=== PATIENT | male | born 1955 | race Caucasian/White ===

== ENCOUNTER → 2020-06-30 17:50 | Outpatient (CLI) | payer OTHER, SELFPAY ==
--- NOTE | 2020-06-30 17:52 | DI.MRI.S_ITS ---
PROCEDURE: MR KNEE LT WO CON INDICATIONS: PRIMARY OSTEOARTHRITIS LEFT KNEE TECHNIQUE: Noncontrast sagittal PD fast spin echo and T2 fast spin echo with fat saturation, sagittal 3-D FLASH with fat saturation; coronal T1 spin echo and PD fast spin echo with fat saturation, and axial PD fast spin echo with fat saturation through the knee. COMPARISON: [facility], MR, KNEE WITHOUT CONTRAST, 11/01/2014, 20:09. FINDINGS: Image quality: Excellent. Menisci: Linear oblique high T2 signal intensity traverses the posterior horn medial meniscus, demonstrating inferior articular surface extension, indicating oblique tearing, as before. Medial extrusion of the medial meniscus is present. Lateral meniscus is intact. Cruciate ligaments: The anterior and posterior cruciate ligaments appear intact. Medial structures: The medial collateral ligament appears intact. Visualized portions of the pes anserinus tendons appear normal. No abnormal bursal fluid. Lateral structures: The lateral collateral ligament, long and short heads of the biceps femoris tendon appear intact. The popliteus tendon appears normal. Iliotibial band appears normal. Anterior structures: The quadriceps and patellar tendons appear intact. Patellar alignment is normal. No femoral trochlear dysplasia or ventral trochlear prominence. No edema in the infrapatellar fat pad. Bones and cartilage: No bone marrow contusions or fractures. There is mild ill-defined T2 signal elevation within the weight-bearing aspect of the medial femoral condyle, as well as the central tibial plateau. Intraosseous ganglion within the central tibial plateau posteriorly. Severe articular cartilage loss diffusely overlies the weight-bearing aspects of the medial femoral condyle and medial tibial plateau. Joint space: There is a moderate knee joint effusion. No Segovia's cyst. Normal appearing synovial plicae are incidentally noted. IMPRESSION: 1. Tricompartmental osteoarthritis with associated articular cartilage loss. 2. Complex tear of medial meniscus. 3. Knee joint effusion and Segovia's cyst. Dictated by: Francisco Huggins M.D. on 07/01/2020 at 11:12 Approved by: Francisco Huggins M.D. on 07/01/2020 at 11:14
== END ==
PROVIDERS: Referring Provider Nurse Practitioner Family; Visit Provider Nurse Practitioner Family
DX: M17.12 Unilateral primary osteoarthritis, left knee (principal); S83.207A Unspecified tear of unspecified meniscus, current injury, left knee, initial encounter; M25.462 Effusion, left knee; M71.22 Synovial cyst of popliteal space [Baker], left knee
CPT/HCPCS: 73721

== ENCOUNTER → 2020-07-22 12:16 | Outpatient (CLI) | payer OTHER, SELFPAY ==
[2020-07-22 12:36] LABS: Add Manual Diff / Slide Review NO; Basophils Absolute Auto 0 /uL (0-100); Basophils Percent Auto 0.5 % (0-2); Eosinophils Absolute Auto 100 /uL (0-450); Hematocrit 43.6 % (41-53); Lymphocytes Absolute Auto 2600 /uL (1100-4500); Lymphocytes Percent Auto 38.1 % (25-40); Mean Corpuscular HGB Conc 34.3 % (30-36); Mean Corpuscular Hemoglobin 29.8 PG (26-34); Mean Corpuscular Volume 86.9 fL (80-100); Monocytes Absolute Auto 600 /uL (0-900); Monocytes Percent Auto 9.1 % (3-14); Neutrophils Absolute Auto 3500 /uL (1500-7000); Neutrophils Percent Auto 50.3 % (50-75); Platelet Count 302 X10^3/uL (150-400); Red Blood Cell Count 5.02 X10^6/uL (4.5-5.9); Red Cell Distribution Width 13.5 % (11.6-14.8); White Blood Cell Count 6.9 X10^3/uL (4.5-11.0)
[2020-07-22 12:43] LABS: Hemoglobin A1C% w Est Avg Glu 6.1 % (4.0-6.0)
[2020-07-22 12:50] LABS: BUN Creatinine Ratio 15.5 (6-22); Blood Urea Nitrogen 17 mg/dL (9-20); Calcium 9.8 mg/dL (8.4-10.2); Carbon Dioxide 27 mmol/L (22-32); Chloride 101 mmol/L (98-107); Estimated Glomerular Filt Rate > 60.0 mL/min (>60); Glucose 109 mg/dL (80-110); HEMOLYSIS < 15 (0-50); Potassium 4.3 mmol/L (3.4-5.1); Sodium 137 mmol/L (137-145)
== END ==
PROVIDERS: Referring Provider Orthopaedic Surgery; Visit Provider Orthopaedic Surgery
DX: Z01.818 Encounter for other preprocedural examination (principal); Z01.812 Encounter for preprocedural laboratory examination; R73.9 Hyperglycemia, unspecified
CPT/HCPCS: 36415; 80048; 83036; 85025; 93005; 93010

== ENCOUNTER → 2020-08-20 09:10 | Outpatient (CLI) | payer OTHER, SELFPAY ==
[2020-08-20 10:06] LABS: COVID19 -Nasal RAPID Negative (Negative)
== END ==
PROVIDERS: Visit Provider Physician Assistant
DX: Z01.812 Encounter for preprocedural laboratory examination (principal); Z20.822 Contact with and (suspected) exposure to COVID-19
CPT/HCPCS: 87635

== ENCOUNTER 2020-08-22 11:07 | Day surgery (SDC) | payer OTHER, SELFPAY ==
[2020-08-15 12:45] VITALS: BMI 36.0
[2020-08-22] VITALS (12 sets, daily range): BP systolic 103–144; BP diastolic 60–93; PULSE 68–88; RESP 12–18; TEMP 36.1–36.9; O2SAT 94–100; BMI 36.0
--- NOTE | 2020-08-22 11:21 | DI.RAD.S_ITS ---
PROCEDURE: XR KNEE LT 1TO2V INDICATIONS: post op total knee TECHNIQUE: 2 view(s) of the knee acquired. COMPARISON: None. FINDINGS: Bones: Patient is status post knee joint arthroplasty. Hardware components are in expected positions. Visualized bony structures are intact. Soft tissues: Overlying postoperative changes are noted. IMPRESSION: Expected postoperative appearance Dictated by: Boni Rojo M.D. on 08/22/2020 at 16:32 Approved by: Boni Rojo M.D. on 08/22/2020 at 16:33
[2020-08-22] MEDS: PREGABALIN 75 MG CAPSULE PO (12:15)
[2020-08-22] MEDS: CELECOXIB 200 MG CAPSULE PO (12:16)
[2020-08-22] MEDS: ACETAMINOPHEN 325 MG TABLET 975 MG PO (12:16)
--- NOTE | 2020-08-22 12:32 | PM.PREOP ---
Pre-operative Note COVID-19 COVID-19 status: Negative Result date/Date tested (Pos, Neg/Pending): 08/20/20 Interval Note History & Physical reviewed/Exam performed by Physician: Yes Changes to H&P: No
[2020-08-22] MEDS: CEFAZOLIN 1 GM VIAL 2 GM IV (13:54)
[2020-08-22] MEDS: TRANEXAMIC ACID 1,000 MG VIAL 1000 MG INJ ×2 (14:10→15:06)
--- NOTE | 2020-08-22 14:18 | SUR.OPER ---
Supine on padded OR bed. Pillow under head, arms secured on padded armboards <90 degree abduction. Safety belt across torso. Non-operative leg secured with tape over blanket over lower leg. Operative leg secured in DeMayo/Josr positioner. Foam padded brace at thigh of operative leg.
[2020-08-22] MEDS: BUPIVACAINE LIPOSOME 266 MG/20 ML VIAL INJ (14:24)
[2020-08-22] MEDS: MORPHINE 4 MG/ML INJ INJ (14:26)
[2020-08-22] MEDS: EPINEPHrine 1 MG/ML SUBCUT (14:27)
[2020-08-22] MEDS: BUPIVACAINE 0.25% (PF) VIAL 30 ML INJ (14:28)
--- NOTE | 2020-08-22 15:29 | P.OP_ITS ---
Operative Date/Time/Diagnoses Date of procedure: 08/22/20 Time of procedure: 15:29 Pre-op diagnosis: Left knee osteoarthritis Post-op diagnosis: same Procedure & Clinicians Procedure: Left total knee replacement Same procedure as scheduled: Yes Indications: The patient has had progressively worsening left knee pain with radiographic changes consistent with arthritis. Non-operative management has failed and the patient has requested total knee replacement. The risks, benefits and alternatives to surgery were discussed with the patient prior to proceeding. Risks discussed included, but were not limited to, failure to relieve pain, stiffness, infection, nerve damage, deep venous thrombosis, pulmonary embolism, stroke, coma, heart attack, permanent paralysis and , as well as the potential need for eventual revision of the prosthetic. Surgeon: Shorty Bertrand Medical Practice Manager: Reza Stephens Click Yes if Unassisted: No Anesthesia Type: General, Spinal and Local Operative Notes Findings: Significant patellofemoral and medial osteoarthritis with relative preservation of the lateral compartment. Closure Type: primary Specimen(s): none sent Prosthetic devices, grafts, tissues, transplants, or devices: Implants used in this procedure were manufactured by the [employer] and [employer] and included the BCS II Journey total knee replacement with a size 5 left non porous tibial base plate, a size 6 left Oxinium femoral component, a 9 mm cross-linked polyethylene tibial insert, and a 35 mm oval Deena II patellar component. Applied: implant(s) Estimated Blood Loss (mL): 50 Tourniquet time (min): 57 Procedure in detail: The patient was seen in the pre-operative area, where the left knee was identified as the operative site and this was marked with my initials. The patient received pre-operative antibiotics, and was taken to the operating room and placed on the operative table in the supine position. After satisfactory anesthesia, a night time babysitter out was performed. The left leg was encircled with a tourniquet about the proximal thigh, and the leg was prepared from the toes to the tourniquet with ChloroPrep in the usual fashion and draped through sterile drapes. The leg was elevated and exsanguinated with Eschmark bandage and the tourniquet inflated to 250 mmHg pressure. The knee was approached through an approximately 18 cm incision centered over the patella and carried into the knee through a medial parapatellar arthrotomy. The anterior osteophytes and soft tissues were removed. The rotational landmarks of Bergen's line and the transepicondylar axis were marked on the femur with electrocautery, and intramedullary guide holes for the femur and tibia were created. The distal femoral cut was made in 6 degrees of valgus using the intramedullary guide at the +1 cut setting due to a mild flexion contracture. The proximal tibial cut was then made using the intramedullary guide, taking 9 mm of bone off the less involved side. The extension gap was checked and the rotation of the femoral component confirmed with the gap balancing blocks. The anterior, posterior and chamfer cuts were then made. The posterior osteophytes and soft tissues were then removed. The posterior capsule was injected with part of a mixture of 60 ml 0.25% Marcaine mixed with 20 ml Exparel and 4 mg of morphine for post-operative pain control. The remainder of this mixture was injected into the capsule and subcutaneous tissues during cement curing. The tibia was prepared with the rotation set by an extra medullary guide. Trial tibial and femoral components were then placed and the intercondylar notch cut through the femoral trial. Range of motion was 0-135 degrees, with good stability throughout the range. The patella was then cut to accommodate the patellar prosthetic. There was no need for a lateral release. The trials were then removed, and the femoral hole plugged with a bone plug. The bone was prepared with pulsatile lavage, and dried with a sponge. Cement was applied and the final prosthetics placed. Excess cement was removed during and after cement curing. After confirming there was no extruded cement posteriorly, the final tibial insert was placed. The knee was copiously irrigated and the tourniquet deflated. Hemostasis was obtained. The capsule was closed with interrupted # 2 polyester sutures. The subcutaneous layer was closed with 3-0 Vicryl, and the skin with a running 3-0 V-Lock suture and Dermabond. An Aquacel Ag dressing was applied and the patient was taken to recovery having tolerated the procedure well. Complications: none Post-operative Condition: stable Disposition: PACU Plan for aftercare: The patient will be maintained on a standard total knee replacement protocol with weight bearing as tolerated. The patient will receive aspirin and sequential compression devices for DVT prophylaxis. The patient will be discharged home when safe for the home environment.
[2020-08-22] MEDS: LACTATED RINGERS 1,000 ML 100 ML IV (17:27)
[2020-08-22] MEDS: IBUPROFEN 400 MG TABLET PO ×2 (17:27→22:07)
[2020-08-22] MEDS: ONDANSETRON 4 MG/2 ML INJ IV (20:44)
[2020-08-22] MEDS: OXYCODONE/ACETAMINOPHEN 5/325 TABLET 1 TAB PO (22:07)
[2020-08-22] MEDS: DOCUSATE 100 MG CAPSULE PO (22:07)
[2020-08-22] MEDS: ASPIRIN EC 81 MG TABLET PO (22:08)
[2020-08-22] MEDS: ACETAMINOPHEN 325 MG TABLET 650 MG PO (22:08)
[2020-08-23] MEDS: IBUPROFEN 400 MG TABLET PO ×4 (01:02→12:45)
[2020-08-23 01:20] VITALS: BP 154/94; PULSE 73; RESP 18; TEMP 36.4; O2SAT 98
[2020-08-23] MEDS: HYDROCODONE/ACET 5/325 TABLET 1 TAB PO (02:13)
[2020-08-23] MEDS: LACTATED RINGERS 1,000 ML 100 ML IV (02:48)
[2020-08-23 05:00] VITALS: BP 154/95; PULSE 75; RESP 22; TEMP 36.1; O2SAT 98
[2020-08-23 06:04] LABS: Hematocrit 39.7 % (41-53); Hemoglobin 13.4 g/dL (13.5-17.5)
[2020-08-23] MEDS: OXYCODONE/ACETAMINOPHEN 5/325 TABLET 1 TAB PO (06:36)
[2020-08-23 07:28] VITALS: BP 124/80; PULSE 71; RESP 18; TEMP 36.1; O2SAT 98
--- NOTE | 2020-08-23 07:38 | P.PN_ITS ---
Subjective Subjective Date Patient Seen: 08/23/20 Time Patient Seen: 07:38 Interval history: Patient states he is doing well overall and is in mild discomfort at rest. At this time the patient denies fever, chills, nausea, chest pain, shortness of breath, or urinary retention. Patient reports good sensation throughout the bilateral lower extremities. He notes that he is eager to be discharged home today. He explains he has been able to ambulate in his room to use the commode. Exam Vital Signs (past 8 hours): - 08/23/20 01:20 08/23/20 05:00 Temperature 97.6 F 96.9 F L Pulse Rate 73 75 Respiratory Rate 18 22 Blood Pressure 154/94 H 154/95 H Pulse Oximetry 98 98 Oxygen Delivery Method Room Air Oxygen Flow Rate 0 Narrative Exam Narrative: 64-year-old male postop day 1 status post left total knee arthroplasty. Patient is resting comfortably in bed, is in no acute distress, is alert and oriented x3. Skin is warm and dry, and the skin surrounding the incision site is free of erythema, warmth, induration, or discharge. Aquacel dressing over the incision site is clean, dry, and intact. Good sensation appreciated throughout bilateral lower extremities to light touch. Hip flexion performed bilaterally without difficulty or discomfort, right greater than left. Ankle dorsiflexion, plantar flexion, eversion, inversion performed bilaterally without difficulty or discomfort. Calves are soft and nontender, negative Homans sign. DP pulses palpated bilaterally. Capillary refill less than 2 seconds. No other signs of DVT appreciated. Const General: cooperative, healthy appearing and comfortable Resp Effort & Inspection: normal respiratory effort and able to speak in complete sentences Skin General: no rashes or lesions noted Objective Labs Result Diagrams: 08/23/20 05:25 Labs: Laboratory Results - last 24 hr 08/23/20 05:25 Hgb 13.4 L Hct 39.7 L [facility] Medical History Seasonal allergies Tinnitus Surgical History History of arthroscopy of both knees History of arthroscopy of right shoulder (08/06/16) History of surgery History of vasectomy (~1983) Hx of plastic surgery Hx of repair of left rotator cuff (01/30/16) Social History household members: spouse and children Smoking Status: Former smoker alcohol intake: former Assessment & Plan Post-op Postoperative Procedures: Procedures Operation Date: 08/22/20 13:15 Actual Procedures Side Surgeon p Total Knee Arthroplasty Left Shorty Bertrand MD Postoperative day: 1 Postoperative status: doing well Postoperative plan: ambulate Postoperative plan narrative: Patient is to remain weight-bearing as tolerated with the assistance of a front wheeled walker. Patient to remain in standard total knee replacement protocol. Patient is to continue working on ambulation and stair Coal with physical therapy prior to discharge. Current pain management regimen is to be continued as it is adequately controlled the patient's pain level at this time. Aspirin 81 mg twice daily is to be continued for DVT prophylaxis along with the assistance of sequential compression devices. Plan for discharge likely home today pending successful work with PT. Quality VTE Deep Vein Thrombosis/Pulmonary Embolism Present on Admission: No
--- NOTE | 2020-08-23 08:21 | CM.DANOTE ---
Addendum entered by Yareli Hugo LPN 08/23/20 11:20: PT has cleared pt for home setting with spouse assist and OUTPT PT. No concerns re the d/c today are identified. Original Note: Discharge Planning/Care Management DCP: assessment: Case received, EMR reviewed and d/c order noted. Pt is a 64 year old male who admitted yesterday for a scheduled L TKA. Payer: [facility]. PT will see him for first time today. Ortho PA Reza clarifies that pt will d/c to home setting once cleared by PT. Will check in and follow prn. Has support from Claudia. CM Discharge Assessment Start: 08/23/20 08:20 Freq: Status: Active Protocol: Document 08/23/20 08:21 ITV (Rec: 08/23/20 08:21 ITV [id number]) Discharge Planning Assessment Advance Directives? No History Provided By Medical Record Prior Living Arrangements House Household Members spouse,children Pre-Anesthesia Assessment Start: 08/15/20 12:45 Freq: Status: Active Protocol: Document 08/15/20 12:45 CAB (Rec: 08/15/20 13:35 CAB [id number]) Pre-Anesthesia Assessment Patient Information Reviewed Via Phone Assessment Assessment Completed With Patient Diagnostic Results BMP/CMP,CBC,EKG Comment Labs/EKG @ [facility] 07/22/20 - COVID screen @ [facility] 08/20/20 Primary Care Provider Alexandra Narvaez Seen Specialist in Last 12 Months Yes Specialist Seen Orthopedist Primary Language Faroese Telemetry Rn Required No Height 170.18 cm Weight 104.326 kg Body Mass Index (BMI) 36.0 Hearing Ability Use of Hearing Aid Visual Assist Magnifying Glass Dentition Type Teeth, Natural Present,Teeth, Missing Barriers to Learning None Hx Anesthesia Reactions No Hx Family Anesthesia Reaction No Hx Malignant Hyperthermia No Hx Blood Transfusions No Anesthesia Review Requested No alcohol intake former Smoking Status Former smoker Tobacco type cigarettes,pipe,cigars how long ago did patient quit smoking Quit 1991 Substance Use Type does not use Pain Present Pain Reported Musculoskeletal Symptoms Abnormal Gait,Difficulty Walking,Joint Pain History of Falling (Recent or History of No ) Patient is completely paralyzed or No completely immobile Mental Status Oriented to own ability Is patient on oxygen? No Does patient have ZAPATA/SOB No Hx Sleep Apnea No Currently Taking a Beta Yan No Can You Climb a Flight of Stairs Without Yes SOB Hx Chest Pain No Hx SOB No Hx Syncope or Dizziness No Anti-Coagulant Therapy No Has a Research Support Specialist No Cardiac Testing No Hx Pacemaker/ICD No Pacemaker Rep Required? No Cardiac Clearance Received Not Applicable Diet Type At Home Regular dysphagia No Bladder Pattern Nocturia Urinary Catheter Present No Hx Urinary Self Catheterization No Diabetes No HgbA1C 6.1 Date 07/22/20 Hx Drug Resistant Organism No Presence of External or Internal Medical Yes: Right shoulder Devices Have you had any close contact with No someone diagnosed with COVID-19? Marital Status Lives With spouse,children Prior Living Arrangements House Number of Floors (Floors) Two Floors Support System Spouse Does the Patient Have Assistance After Yes Surgery Patient Discharge Plan Description Return Home Comment Pt advised 23 hour length of stay per surgeon Feels Safe in Current Environment Yes Been Physically Hurt or Threatened By a No Person in Current Environment Do you have thoughts of harming yourself None or others? Are you currently considering suicide? No Do you have a plan to hurt yourself or No Plan others? Do You Have Any Spiritual Beliefs That No May Affect Your HC Choices? Do You Have Any Cultural Practices That No May Affect Your HC Choices? Comment Restorationist Who Can We Speak to About Patient's Care Family, friends Identifying Code for Release of Patient Declines to issue Information Health Care Proxy/Next of Kin Claudia () Health Care Proxy Emergency Contact Name Claudia () Moni ( daughter) Emergency Contact Phone Number Claudia: [phone] Moni : [phone] Advance Directives? No Power of Tailing Machine Operator No PAC Instructions Durable medical equipment, Medications to take/avoid, Nasal antibiotic,No ETOH/ petroleum product on skin DOS, NPO,Post-op transportation,Pre -surgical wash,Sensory aids, Sturdy shoes/comfortable clothes,Do not bring valuables and remove jewelry
[2020-08-23 08:27] VITALS: PULSE 62; RESP 16; O2SAT 95
[2020-08-23] MEDS: DOCUSATE 100 MG CAPSULE PO (09:03)
[2020-08-23] MEDS: ACETAMINOPHEN 325 MG TABLET 650 MG PO (09:04)
[2020-08-23] MEDS: ASPIRIN EC 81 MG TABLET PO (09:04)
--- NOTE | 2020-08-23 10:15 | PT.IIE ---
Current Diagnoses Unilateral primary osteoarthritis, left knee (08/22/20) Surgery Performed Operation Date: 08/22/20 13:15 Actual Procedures p Total Knee Arthroplasty(Left) - Shorty Bertrand MD Surgical History (Last Reviewed 08/23/20 @ 07:39 by Reza Stephens PA-C) History of arthroscopy of both knees History of arthroscopy of right shoulder (08/06/16) History of surgery History of vasectomy (~1983) Hx of plastic surgery Hx of repair of left rotator cuff (01/30/16) Medical History (Last Reviewed 08/23/20 @ 07:39 by Reza Stephens PA-C) Seasonal allergies Tinnitus Physical Therapy Inpatient Evaluation/Re-Eval M1 PT/OT-IP Prior Functional Status Start: 08/23/20 11:00 Freq: NEEDED Status: Active Protocol: Document 08/23/20 10:15 DLM (Rec: 08/23/20 11:12 DLM [id number]) Medical Review Prior Functional Status Medical History Reviewed Yes Diet/Fluid Consistency Regular Communication WNL Mobility and Gait Independent without device community distances, knee pain limited activity Activities of Daily Living and IADL's Independent Prior Functional Level (Other details) His goal is to be able to hike [place] in Dec. Social History Household Members spouse,children Living Arrangements House Number of Floors (Floors) Two Floors Number of Stairs To Enter/Railing? 7 to bedroom, one to enter house Home Environment High Toilet,Walk in Shower Home Equipment Front Wheel Walker,Straight Cane,Grab Bars Near Toilet, Grab Bars In Shower M2 PT-IP Current Condition Start: 08/23/20 11:00 Freq: NEEDED Status: Active Protocol: Document 08/23/20 10:15 DLM (Rec: 08/23/20 11:12 DLM [id number]) Physical Therapy Current Condition Current Condition Evaluation Date 08/23/20 Treatment Diagnosis left TKA, impaired gait and mobility Onset Date 08/22/20 Weight Bearing Status Weight Bearing Status Weight Bear as Tolerated M3 PT-IP Subjective Start: 08/23/20 11:00 Freq: NEEDED Status: Active Protocol: Document 08/23/20 10:15 DLM (Rec: 08/23/20 11:12 DLM [id number]) Subjective Physical Therapy Visit Type Type Initial Evaluation Visit Start Time 10:15 Visit Stop Time 09:14 Total Visit Minutes 61 Number of ATHLETIC TURF WORKER Visits 0 Physical Therapy Visit Comments Patient Comments He has out-pt PT planned after discharge, His FWW is ready to use, has experience with equipment from family members using them in the past Patient Goals Discharge home today Therapy Pain Assessment Pain When Pain Assessed After Treatment Pain Present Pain Present Pain Reported Location LEFT KNEE Intensity 4 Scale Used Numeric (0 - 10) Description Aching,Tightness,With Movement Pain Behaviors Facial Grimacing Pain Management Techniques Apply Cold,Elevation,Timing of Activity with Medications M4 PT-IP Mobility and Gait Start: 08/23/20 11:00 Freq: NEEDED Status: Active Protocol: Document 08/23/20 10:15 DLM (Rec: 08/23/20 11:12 DLM [id number]) PT-Bed Mobility Assessment Rolling Type of Rolling Bilateral Level of Assist Independent Supine to Sit Supine to Sit Independent Sit to Supine Sit to Supine Independent Scooting Scooting to Edge of Bed Independent Scooting Up and Down in Bed Independent PT-Transfer Assessment Sit to and From Stand Sit to and from Stand Independent,Use of Upper Extremities Equipment Transfer Assistive Device Gait Belt,Front Wheeled Walker Transfers Transfer Destination Chair Transfer Technique Stand Step Pivot Transfer Ability Level of Assist Independent,Use of Upper Extremities Comments Mobility Comments After training he demonstrates independent mobility with safe technique, good use of UE 's to compensate for left LE, using right LE to assist left LE into bed to better manage his pain Gait Assessment Gait Gait Assistance Required: Independent Distance (Feet) 200 Able to Maintain Weight Bearing Status Yes During Gait Assistive Devices Assistive Device Gait Belt,Front Wheeled Walker Gait Deviations General Gait Pattern Antalgic Factors Limiting Gait Function Factors Limiting Gait Function Decreased Activity Tolerance, Decreased Strength,Limited Range of Motion,Pain Stair Climbing Assessment Evaluation Level of Assist On Stairs Standby Assistance Devices Stair Climbing Assistive Devices Left Railing,Right Railing Technique/Endurance Stair Climbing Direction Ascend and Descend Stair Climbing Technique Step to Step Number of Steps Climbed 3 Query Text: Stair Climbing Set # Repetitions (reps) 1 Comments Stair Climbing Comments also performed up/down curb with FWW with SBA PT-Balance Assessment Sitting Balance and Reactions Static Sitting Balance Ability Normal Dynamic Sitting Balance Ability Normal Standing Balance and Reactions Static Standing Balance Ability Good Dynamic Standing Balance Ability Good Device Used FWW M5 PT-IP Objective Assessments Start: 08/23/20 11:00 Freq: NEEDED Status: Active Protocol: Document 08/23/20 10:15 DLM (Rec: 08/23/20 11:12 DLM [id number]) Orientation Orientation/Cognition Level of Alertness Alert Orientation Name,Age,Birthday,Month,Date, Year,Day of Week,Place, Situation Language Function Ability No Deficits Noted Safety Awareness Understands Safety Issues Memory Description No Deficits Noted Gross Range of Motion Upper Extremity ROM Assessment Within Functional Limits Lower Extremity ROM Assessment Left Impaired Impairments knee AROM 20-60 degrees with pain Strength Upper Extremity Strength Assessment Within Functional Limits Lower Extremity Strength Assessment Left Impaired Hip able to do SLR with mild ext lag Knee knee ext 3-/5 seated with pain Ankle DF 5/5 Coordination Assessment Gross Coordination Gross Coordination WNL Sensation Assessment Sensation Gross Sensation WNL Muscle Tone Muscle Tone WNL Yes M6 PT-IP Treatment Start: 08/23/20 11:00 Freq: NEEDED Status: Active Protocol: Document 08/23/20 10:15 DLLandon (Rec: 08/23/20 11:12 DLM [id number]) Physical Therapy Treatment Exercises Exercises Ankle Pumps,Quad Sets,Heel Slides,Straight Leg Raises, Short Arc Quads,Passive Knee Extension Hang,Seated Knee Flexion/Extension Education Education Provided Post-Op Packet,Safety Equipment Issued Equipment Type and Company he has his FWW from home in his room M7 PT-IP Assessment and Plan Start: 08/23/20 11:00 Freq: NEEDED Status: Active Protocol: Document 08/23/20 10:15 DLLandon (Rec: 08/23/20 11:12 DL [id number]) PT Summary Assessment and Plan Potential Rehabilitation Potential Excellent Status of Condition at Evaluation Evolving Summary Impairments Pain,ROM,Strength,Balance,Bed Mobility,Transfers,Gait, Activity Tolerance Progress Towards Goals Safe For Discharge Assessment Summary Andrews is progressing well today , POD #1. He feels his pain is well managed at this time. He is eager to return home. He tolerated gait in the espinal well with FWW. He is able to go up and down steps safely with UE support of rails or FWW. Completed education and training this visit. He appears safe to discharge home when medically cleared. He has the equipment he needs at discharge. Goals Bed Mobility Goal Independent Transfer Goal Independent Gait Goal Independent Gait Distance 200 feet Days to Meet Goals 1 Frequency of Treatment Frequency Of Treatment Discharge Treatment Plan Physical Therapy Treatment Plan Bed Mobility Training,Transfer Training,Gait Training, Therapeutic Exercise,Balance Retraining,Post Op Education, Discharge Planning,Hot or Cold Pack Other Recommendations and Next Treatment completed training and pt Focus education this visit Recommendations To Nursing Amount of Assist Needed Standby Assistance Discharge Recommendations PT Discharge Recommendations Home with Assistance, Outpatient PT Other Discharge Recommendations his is available to assist as needed at discharge Transportation Needs at Discharge Private Vehicle
--- NOTE | 2020-08-23 11:46 | P.DS_ITS ---
History of Present Illness History of Present Illness Date Patient Seen: 08/23/20 Time Patient Seen: 11:46 Chief complaint: Left Total Knee Arthroplasty *OPB* Narrative: Refer to previous HPI. Discharge Providers Provider Discharge Date: 08/23/20 Primary care physician: Christine Samuel DO Consults: 08/22/20 16:34 Consult to Discharge Planning Routine Comment: Consult to Physical Therapy Evaluate & Treat Comment: Physician Instructions: postop TKA protocol Consult to Respiratory Therapy Evaluate & Treat Comment: Physician Instructions: Evaluate and treat Discharge provider: Reza Stephens PA-C Summary Hospital Course Discharge Diagnosis: Left knee osteoarthritis Status post left total knee arthroplasty Hospital Course: Patient was admitted to the hospital following the above-listed procedure for the above-listed diagnosis. Following the procedure the patient has been convalescing appropriately in his pain has been managed with current pain management regimen. Patient has remained weight-bearing as tolerated with the assistance of a front wheeled walker following the surgery. Aspirin 81 mg twice daily has been administered for DVT prophylaxis with the assistance of sequential compression devices. Patient has successfully worked on ambulation with the assistance of a front wheeled walker with physical therapy. Aquacel dressing over the incision site has remained clean, dry, and intact following surgery. Patient has remained in standard total knee replacement protocol. Status at Discharge Cognitive/behavioral status at discharge: oriented Functional status at discharge: uses cane/walker Overall status at discharge: patient is progressing back to baseline Exam Vital Signs (past 8 hours): - 08/23/20 05:00 08/23/20 07:28 08/23/20 08:27 Temperature 96.9 F L 96.9 F L Pulse Rate 75 71 62 Respiratory Rate 22 18 16 Blood Pressure 154/95 H 124/80 Pulse Oximetry 98 98 95 Oxygen Delivery Method Room Air Oxygen Flow Rate 0 Narrative Exam Narrative: 64-year-old male postop day 1 status post left total knee arthroplasty. Patient is resting comfortably in bed, is in no acute distress, is alert and oriented x3. Skin is warm and dry, and the skin surrounding the incision site is free of erythema, warmth, induration, or discharge. Aquacel dressing over the incision site is clean, dry, and intact. Good sensation appreciated throughout bilateral lower extremities to light touch. Hip flexion performed bilaterally without difficulty or discomfort, right greater than left. Ankle dorsiflexion, plantar flexion, eversion, inversion performed bilaterally without difficulty or discomfort. Calves are soft and nontender, negative Homans sign. DP pulses palpated bilaterally. Capillary refill less than 2 seconds. No other signs of DVT appreciated. Const General: cooperative, healthy appearing and comfortable Resp Effort & Inspection: normal respiratory effort and able to speak in complete sentences Skin General: no rashes or lesions noted Objective Labs Result Diagrams: 08/23/20 05:25 Labs: Laboratory Results - last 24 hr 08/23/20 05:25 Hgb 13.4 L Hct 39.7 L PFSH Medical History Seasonal allergies Tinnitus Surgical History History of arthroscopy of both knees History of arthroscopy of right shoulder (08/06/16) History of surgery History of vasectomy (~1983) Hx of plastic surgery Hx of repair of left rotator cuff (01/30/16) Social History household members: spouse and children Smoking Status: Former smoker alcohol intake: former Discharge Assessment & Plan Assessment and Plan Assessment: Patient is doing well and is stable. Plan of Treatment: Patient is to continue physical therapy in the outpatient setting following discharge from hospital. First postoperative visit in clinic is scheduled for 2 weeks following discharge. Current pain management regimen is to be continued as it is adequately controlled the patient's pain level. Aspirin 81 mg twice daily is to be continued for 6 weeks for DVT prophylaxis. Aquacel dressing over the incision site is to remain clean, dry, and intact. Patient is to contact the clinic if the dressing becomes damaged or soiled. Patient is to avoid placing topical ointments over the incision site or soaking the incision site. Patient is to contact clinic with any concerns or questions. Any signs of increased redness, swelling, warmth, or discharge from around the incision site should be reported to the clinic. Patient is to remain weight-bearing as edie ated. Discharge Plan Discharge Plan Patient Disposition: Home Provider Discharge Comment: Patient cleared for discharge pending PT clearance. Discharge orders & Medications Discharge Orders: Discharge (Order); Ordered 08/23/20 Ordered By: Reza Stephens Prescriptions: New acetaminophen 325 mg Tablet 650 mg PO TID Qty: 90 RF: 0 hydrocodone-acetaminophen 5-325 mg Tablet 1 tab PO Q4HR PRN (Reason: Pain, Moderate (4-6)) Qty: 42 RF: 0 aspirin 81 mg Tablet,Delayed Release (Dr/Ec) 81 mg PO BID Qty: 90 RF: 0 ibuprofen 400 mg Tablet 400 mg PO Q4HR Qty: 90 RF: 0 Continued multivitamin [Multiple Vitamins] 1 EACH tablet 1 tab PO DAILY Qty: 0 RF: 0 lidocaine 5 % Adhesive Patch,Medicated 1 patch TOPICAL DAILY RF: 0 Follow up/Referrals: Christine Samuel DO [Primary Care Provider] - Diet/Activity/Treatments Diet: Diet as Tolerated and Regular Activity: Weight-bearing as tolerated with the assistance of a front wheeled walker. Skin/Wound/Dressing Care Report to your healthcare provider any signs of infection, such as:: chills, fever, night sweats, increased pain, unusual drainage and unusual redness Dressing: Aquacel dressing over the incision site is to remain clean, dry, and intact for 2 weeks. Contact the clinic if the dressing becomes damaged or soiled. Other wound treatment: Avoid placing topical ointments over the incision site. Avoid soaking the incision site. Visit Report/Discharge Packet Instructions: DI for Knee Replacement Stand Alone Forms: Surgery Discharge Discharge Data Primary Care Provider: Christine Samuel Attending Provider: Shorty Bertrand Quality VTE Deep Vein Thrombosis/Pulmonary Embolism Present on Admission: No
[2020-08-23 11:58] VITALS: O2SAT 95
--- NOTE | 2020-08-23 11:59 | PC.NURSE ---
Addendum entered by Zenia Benitez R.N. 08/23/20 12:58: Pt ride here. Escorted via W/C by staff to waiting vehicle D/C in stable condition. Original Note: Orders for discharge. HL discontinued intact. Discharge instructions & RX given w/apparent understanding Awaiting ride.
== END 2020-08-23 12:55 | disposition home or self-care (01) ==
LOC: OR 11:09 → AC 11:11
PROVIDERS: PCP Family Medicine; Referring Provider Orthopaedic Surgery; Visit Provider Orthopaedic Surgery
PROC: 0SRD0JZ Replacement of Left Knee Joint with Synthetic Substitute, Open Approach (ICD-10-PCS; CPT 27447; principal; 2020-08-22 13:15)
DX: M17.12 Unilateral primary osteoarthritis, left knee (principal)
CPT/HCPCS: 27447; 36415; 73560; 85014; 85018; 94762; 97110; 97116; 97162; C1776; C9290; J0171; J0690; J1100; J2250; J2270; J2274; J2405; J2704; J3010

== ENCOUNTER → 2021-04-28 11:01 | Outpatient (CLI) | payer OTHER, SELFPAY ==
[2020-08-22 16:51] VITALS: BMI 36.0
[2021-04-28 12:57] LABS: COVID19 -Nasal RAPID Negative (Negative)
== END ==
PROVIDERS: PCP Physician Assistant; Visit Provider Family Medicine Sleep Medicine
DX: Z20.822 Contact with and (suspected) exposure to COVID-19 (principal)
CPT/HCPCS: 87635; C9803

== ENCOUNTER 2021-05-01 11:09 | Day surgery (SDC) | payer OTHER, SELFPAY ==
[2020-08-22 16:51] VITALS: BMI 36.0
--- NOTE | 2021-05-01 | PATH_ITS ---
[facility] Accession Number: [id number] . 01 Material submitted: . PART A: colon - TRANSVERSE COLON POLYP PART B: cecum - CECAL POLYPS PART C: rectum - RECTAL POLYP . 02 Diagnosis: A. Transverse Colon Polyp: Portions of tubular adenoma x2. . B. Cecal Polyps: Portions of tubular adenoma x2. . C. Rectal Polyp: Portion of tubular adenoma x1. Portion of hyperplastic polyp x1. MRV 05/03/2021 1001 Local . 02 Electronically signed: . Elida Almanza MD, Pathologist NPI- [id number] . 01 Gross description: . Part A: TRANSVERSE COLON POLYP: Received in formalin are multiple fragment(s) of dunn, soft tissue measuring 2.7 x 0.3 x 0.1 cm in aggregate submitted entirely in 1 cassette(s) Part B: CECAL POLYPS: Received in formalin are 2 fragment(s) of dunn, soft tissue measuring 0.5 x 0.3 x 0.2 cm to 0.4 x 0.3 x 0.2 cm submitted entirely in 1 cassette(s) Part C: RECTAL POLYP: Received in formalin are multiple fragment(s) of dunn, soft tissue measuring 0.9 x 0.6 x 0.1 cm in aggregate submitted entirely in 1 cassette(s) /CPE 05/02/2021 0946 Local . 02 Pathologist provided ICD-10: K63.5, Z86.010 . 02 CPT . 032160, 582898, 373524 Specimen Comment: A courtesy copy of this report has been sent to [phone] Performed at: 01 [facility] [address] [place] [address] [address], [place], [place] [id number] MD Shayne Guzman MD Phone: [phone] Performed at: 02 [facility] [address] [place] [id number] MD Margo Isaac MD Phone: [phone]
[2021-05-01] MEDS: SODIUM CHLORIDE 0.9% 1,000 ML 84 ML IV (11:27)
[2021-05-01 11:32] VITALS: BP 154/89; PULSE 86; RESP 18; TEMP 36.2; O2SAT 100
--- NOTE | 2021-05-01 11:46 | PM.HP.1 ---
History of Present Illness History of Present Illness Date Patient Seen: 05/01/21 Time Patient Seen: 11:46 Chief complaint: COLONOSCOPY Narrative: Patient reports having a colonoscopy 4 years ago with a polyp removed and was told he is indicated for 3 year follow-up exam. I have not seen said colonoscopy report nor the pathology as of the time of this note. Patient History Medical History Seasonal allergies Tinnitus Surgical History History of arthroscopy of both knees History of arthroscopy of right shoulder (08/06/16) History of surgery History of vasectomy (~1983) Hx of plastic surgery Hx of repair of left rotator cuff (01/30/16) Family & Social History Social History: household members spouse,children Tobacco & Substance use: Tobacco type cigarettes,pipe,cigars Smoking Status Former smoker alcohol intake former Substance Use Type does not use Meds Home Medications and Allergies Home Medications Medication Instructions Recorded Confirmed Type multivitamin (Multiple Vitamins) 1 tab PO DAILY #0 08/01/16 05/01/21 History lidocaine 5 % topical patch 1 patch TOPICAL DAILY 08/15/20 05/01/21 History acetaminophen 325 mg tablet 650 mg PO TID #90 tab 08/23/20 Rx aspirin 81 mg tablet,delayed 81 mg PO BID #90 tab 08/23/20 05/01/21 Rx release atorvastatin 20 mg tablet 20 mg PO DAILY 05/01/21 05/01/21 History Allergies Allergy/AdvReac Type Severity Reaction Status Date / Time oxycodone [From Percocet] AdvReac Mild I get Verified 08/15/20 13:06 emotional Review of Systems Review of Systems ROS: Yes All systems reviewed with the patient and are negative except as otherwise documented Exam Vital Signs (past 8 hours): - 05/01/21 11:32 Temperature 97.2 F L Pulse Rate 86 Respiratory Rate 18 Blood Pressure 154/89 H Pulse Oximetry 100 Oxygen Delivery Method Room Air Const General: cooperative and comfortable Orientation: alert HENMT Head: normocephalic Ears: external ears normal Nose: external nose normal Face and sinus: normal facial exam Mouth: oral mucosae normal Eyes General: appearance normal, both eyes and all related structures Neck Neck: normal visual inspection Chest Chest: normal inspection of the chest Resp Effort & Inspection: normal respiratory effort Cardio Rate: regular rate GI Inspection: normal to inspection Skin General: no rashes or lesions noted and No jaundice Neuro General: patient alert and moves all extremities Cognition: normal cognition Speech: speech normal Extrem General: no pedal edema Psych Appearance: grossly normal Assessment & Plan Assessment & Plan narrative: 65-year-old male with a personal history of colon polyps. He is indicated for surveillance colonoscopy. This will be pursued today. Time Spent With Patient Critical Care time: I spent a total of [] minutes of critical care time on this patient's care today; this time is exclusive of procedural time.
--- NOTE | 2021-05-01 11:49 | PM.PREOP ---
Pre-operative Note COVID-19 COVID-19 status: Negative Result date/Date tested (Pos, Neg/Pending): 04/28/21 Criteria for continued procedure: Possibility delay results in more complex future surgery or treatment Interval Note History & Physical reviewed/Exam performed by Physician: Yes Changes to H&P: No ASA Class (for procedural sedation): II
--- NOTE | 2021-05-01 13:20 | P.OP.COLON_ITS ---
Operative Date/Time/Diagnoses Date of procedure: 05/01/21 Time of procedure: 13:21 Pre-op diagnosis: Personal history of colon polyps Post-op diagnosis: same Procedure & Clinicians Study performed: Colonoscopy with hot snare polypectomy Same procedure as scheduled: Yes Indications: Personal history colon polyps Surgeon: Willam Forte Procedure Notes SCOAP/Timeout: Done Procedure in detail: After the risks and benefits were explained, written and verbal informed consent was obtained. The patient was brought into the procedure room and placed into the left lateral decubitus position. Please see nurse wallpaper inspector and shipper notes for sedation details. Digital rectal examination was accomplished. The scope was introduced into the patient and advanced under direct visualization to the cecum as identified by the appendiceal orifice and ileocecal valve. The scope was slowly withdrawn to carefully examine the mucosa for any defects or lesions. Comprehensive imaging was accomplished throughout the rectum including the dentate line. The colon was decompressed, the scope was then removed from the patient who tolerated the procedure well. Bowel prep adequate following copious irrigation and suction Adult colonoscope Scope withdrawal time: 18 minutes Sedation minutes: 29 Complications: none Impression: Patient had moderate internal hemorrhoids grade 1. There was diverticulosis extending from the sigmoid into the transverse. In the cecum there were 2 polyps removed with hot snare. These were both sessile. The smaller polyp was perhaps 5-6 mm and the larger 9-10 mm in greatest dimension. There was a 6 mm sessile polyp in the transverse colon removed with hot snare. There were 2 ses sile polyps in the rectum ranging in size from 6-7 mm both removed with hot snare as well. Endoscopic diagnosis 1. Diverticulosis 2. Grade 1 hemorrhoids 3. Multiple colon polyps Post-procedure Plan for aftercare: 1. Await histopathology 2. Repeat colonoscopy 3 years. Disposition: PACU
[2021-05-01 13:23] VITALS: BP 131/90; PULSE 80; RESP 20; TEMP 37; O2SAT 14
[2021-05-01 13:29] VITALS: BP 146/93; PULSE 75; RESP 12; O2SAT 100
[2021-05-01 13:34] VITALS: BP 146/90; PULSE 84; RESP 18; O2SAT 99
[2021-05-01 13:42] VITALS: BP 148/96; PULSE 78; RESP 18; TEMP 37.1; O2SAT 99
== END 2021-05-01 13:53 | disposition home or self-care (01) ==
PROVIDERS: PCP Physician Assistant; Referring Provider Internal Medicine Gastroenterology; Visit Provider Internal Medicine Gastroenterology
PROC: 0DJD8ZZ Inspection of Lower Intestinal Tract, Via Natural or Artificial Opening Endoscopic (ICD-10-PCS; CPT 45378; principal; 2021-05-01 12:30)
DX: Z12.11 Encounter for screening for malignant neoplasm of colon (principal); Z86.010 Personal history of colon polyps; K64.0 First degree hemorrhoids; K57.30 Diverticulosis of large intestine without perforation or abscess without bleeding; D12.3 Benign neoplasm of transverse colon; D12.0 Benign neoplasm of cecum; D12.8 Benign neoplasm of rectum
CPT/HCPCS: 45385; J2704

== ENCOUNTER → 2021-07-27 15:21 | Outpatient (CLI) | payer OTHER, SELFPAY ==
[2020-08-22 16:51] VITALS: BMI 36.0
--- NOTE | 2021-07-27 | DI.MRI.S_ITS ---
PROCEDURE: MR ABDOMEN WO/W CON INDICATIONS: Other specified disorders of kidney and ureter TECHNIQUE: Coronal HASTE through abdomen and pelvis; axial 2D FLASH in- and [id number] (with and without fat saturation), and breath-hold T2 FSE from the hepatic dome to the bottom of the kidneys. Coronal HASTE MR urogram of kidneys and bladder. Dynamic coronal VIBE during IV gadolinium administration; postgadolinium axial VIBE or 2D FLASH with fat saturation from the hepatic dome through the kidneys. COMPARISON: None. FINDINGS: Image quality: Excellent. Genitourinary system: Kidneys are normal in length. There is a partially exophytic T2 hyperintense corticomedullary cyst arising from the midpole left kidney measuring 2.4 x 1.3 cm. No intrinsic septation or mural nodularity. No enhancement postcontrast. There is no hydronephrosis. Kidneys uptake and excrete IV contrast symmetrically. Other solid organs: The liver is slightly enlarged and moderately hypointense on T1 out of phase imaging. Scattered tiny T2 hyperintensities throughout the liver, mainly peripherally. No arterially enhancing lesion. The gallbladder and biliary tree are normal. Normal pancreas, adrenal glands, and spleen. Nodes and vessels: Retro aortic left renal vein. Abdominal aorta and IVC are normal caliber. No retroperitoneal or mesenteric adenopathy. Bowel and peritoneum: Scattered diverticula seen throughout the visible loops of colon. Stomach and small bowel are largely decompressed. No free fluid. Lung bases: Incidental note made of ascending aortic aneurysm measuring 4.3 cm in AP diameter. The heart size is normal. No pericardial effusion. No basal effusions. Bones and soft tissues: Normal marrow signal. Tiny fat containing umbilical hernia. IMPRESSION: 1. 2.4 cm simple left renal cyst. Otherwise normal kidneys. 2. Moderate hepatic steatosis with several peripheral cysts or Von Meyenberg complexes (biliary dilatations). 3. Colonic diverticulosis. 4. Ascending aortic aneurysm. Dictated by: Anastasia Lewis M.D. on 07/27/2021 at 17:15 Approved by: Anastasia Lewis M.D. on 07/27/2021 at 17:22
== END ==
PROVIDERS: PCP Student in an Organized Health Care Education/Training Program; Referring Provider Physician Assistant; Visit Provider Physician Assistant
DX: N28.89 Other specified disorders of kidney and ureter (principal); N28.1 Cyst of kidney, acquired; K76.0 Fatty (change of) liver, not elsewhere classified; K57.90 Diverticulosis of intestine, part unspecified, without perforation or abscess without bleeding; I71.2 Thoracic aortic aneurysm, without rupture
CPT/HCPCS: 74183; A9579

== ENCOUNTER → 2022-03-27 08:51 | Outpatient (CLI) | payer MEDICARE, OTHER, SELFPAY ==
[2020-08-22 16:51] VITALS: BMI 36.0
--- NOTE | 2022-03-27 | DI.NM.S_ITS ---
PROCEDURE: NM BONE 3 PHASE RADIOPHARMACEUTICAL: 20.8 mCi Tc-99m MDP IV. INDICATIONS: Pain in left knee TECHNIQUE: Multiple bone scintigrams were obtained after intravenous injection of Tc-99m MDP, including flow, blood pool, and delayed images centered to the region of interest. COMPARISON: [facility] [place], CR, XR KNEE 4+ VIEWS LEFT, 03/13/2022, 15:53. FINDINGS: Photopenia is noted within the left knee consistent with arthroplasty. There is slight appearance of increased uptake on delayed images surrounding the arthroplasty. However, remaining portions of exam are overall nonspecific. IMPRESSION: Slight appearance of increased uptake along the arthroplasty on delayed images. This could be related to nonspecific inflammation. Dictated by: Codi Michelle M.D. on 03/27/2022 at 16:28 Transcribed by: PANKAJ on 03/27/2022 at 16:29 Approved by: Codi Michelle M.D. on 04/06/2022 at 8:10
== END ==
PROVIDERS: PCP Internal Medicine; Referring Provider Orthopaedic Surgery; Visit Provider Orthopaedic Surgery
DX: M25.562 Pain in left knee (principal); Z96.652 Presence of left artificial knee joint
CPT/HCPCS: 78315; A9503

== ENCOUNTER → 2023-04-23 14:59 | Outpatient (CLI) | payer MEDICARE, OTHER, SELFPAY ==
[2020-08-22 16:51] VITALS: BMI 36.0
--- NOTE | 2023-04-25 13:05 | DI.NM.S_ITS ---
DATE OF SERVICE: 04/23/2023 PROCEDURE: Exercise stress test. INDICATIONS: Atypical chest pain, hypertension, small ascending aorta aneurysm. CARDIAC STRESS: The patient underwent exercise stress test under the supervision of an attending staff. He walked on Jagdish protocol for about 6 minutes, achieved maximum heart rate of 141, which was 92% of target heart rate. Normal blood pressure response. Resting blood pressure 128/85 and peak blood pressure 186/84 mmHg. BOBBY positive 18% and achieved 6.9 METS of workload. Baseline rhythm sinus. During stress, no convincing ischemic changes or significant arrhythmias seen other than rare PVCs. No chest pain or anginal symptoms; however, the patient had dyspnea and fatigue. CONCLUSION: 1. Exercise stress test is negative for inducible ischemia. 2. Diminished exercise tolerance. 3. No anginal symptoms. 4. No significant arrhythmias with normal hemodynamic response. Overall, low-risk exercise stress test. There was normal recovery. Andrews Warren - TIM/darya/JOE doc#: [id number]/job#: [id number] dd: 04/23/2023 17:03:00 dt: 04/24/2023 00:12:00 DICTATING /COPIES TO: Natanael Duron MD COPIES MNE: MADHU;
== END ==
PROVIDERS: PCP Internal Medicine; Referring Provider Internal Medicine Cardiovascular Disease; Visit Provider Internal Medicine Cardiovascular Disease
DX: I71.21 Aneurysm of the ascending aorta, without rupture (principal); I10 Essential (primary) hypertension; R07.89 Other chest pain
CPT/HCPCS: 93017

== ENCOUNTER 2024-01-24 11:03 | Day surgery (SDC) | payer MEDICARE, OTHER, SELFPAY ==
[2020-08-22 16:51] VITALS: BMI 36.0
[2024-01-24 11:17] VITALS: BP 154/91; PULSE 84; RESP 14; TEMP 36.1; O2SAT 99
--- NOTE | 2024-01-24 11:31 | PM.HP.1 ---
History of Present Illness History of Present Illness Date Patient Seen: 01/24/24 Time Patient Seen: 11:32 Chief complaint: Dx Colonoscopy w/poss bx Narrative: 68-year-old white male underwent a colonoscopy 3 years ago where several polyps were identified and removed. Recommendation was repeat colonoscopy in 3 years. No changes in health. He has a diabetic with hypertension and hyperlipidemia. [facility] Medical History (Updated 01/24/24 @ 11:33 by Ashutosh Chakraborty MD) Personal history of colonic polyps Seasonal allergies Tinnitus Surgical History History of surgery History of vasectomy (~1983) Hx of plastic surgery History of arthroscopy of both knees History of arthroscopy of right shoulder (08/06/16) Hx of repair of left rotator cuff (01/30/16) Social History household members: spouse and children Smoking Status: Former smoker alcohol intake: former Meds Home Medications and Allergies Home Medications Medication Instructions Recorded Confirmed Type multivitamin (Multiple Vitamins 1 tab PO DAILY ##0 08/01/16 01/24/24 History tablet) acetaminophen 325 mg tablet 650 mg (2 x 325 mg) PO TID #90 tabs 08/23/20 01/24/24 Rx losartan 50 mg tablet 50 mg PO DAILY 01/24/24 01/24/24 History metoprolol succinate 25 mg 25 mg PO DAILY 01/24/24 01/24/24 History tablet,extended release 24 hr rosuvastatin 40 mg tablet 40 mg PO DAILY 01/24/24 01/24/24 History Allergies Allergy/AdvReac Type Severity Reaction Status Date / Time oxycodone [From Percocet] AdvReac Mild I get Verified 01/24/24 11:14 emotional Review of Systems Review of Systems ROS: Yes All systems reviewed with the patient and are negative except as otherwise documented Constitutional Constitutional: Reports system reviewed and no additional complaints, except as documented Eyes Eyes: Reports system reviewed and no additional complaints, except as documented ENT Ears, Nose, Mouth, and Throat: Yes system reviewed and no additional complaints, except as documented Cardiovascular Cardiovascular: Reports system reviewed and no additional complaints, except as documented Respiratory Respiratory: Reports system reviewed and no additional complaints, except as documented Gastrointestinal Gastrointestinal: Reports system reviewed and no additional complaints, except as documented Genitourinary Genitourinary: Reports system reviewed and no additional complaints, except as documented Musculoskeletal Musculoskeletal: Reports system reviewed and no additional complaints, except as documented Integumentary/Breasts Skin/Breast: Reports system reviewed and no additional complaints, except as documented Neurologic Neurologic: Reports system reviewed and no additional complaints, except as documented Psychiatric Psychiatric: Reports system reviewed and no additional complaints, except as documented Endocrine Endocrine: Reports system reviewed and no additional complaints, except as documented Hematologic/Lymphatic Hematologic/Lymphatic: Reports system reviewed and no additional complaints, except as documented Allergic/Immunologic Allergic/Immunologic: Reports system reviewed and no additional complaints, except as documented Exam Vital Signs (past 8 hours): - 01/24/24 11:17 Temperature 97.0 F L Pulse Rate 84 Respiratory Rate 14 Blood Pressure 154/91 H Pulse Oximetry 99 Oxygen Delivery Method Room Air Oxygen Delivery Method Room Air Narrative Exam Narrative: Gen: NAD, sitting comfortably in bed, appears well HEENT: Sclera are anicteric, head is normocephalic and atraumatic, trachea is midline. CV: RRR, no JVD Resp: clear to auscultation bilaterally, equal chest wall movement bilaterally Abd: soft, nontender, normoactive bowel sounds Ext: no edema, full range of motion Neuro: Cranial nerves II-XII grossly intact, no focal deficits Skin: No erythema or ecchymosis Assessment & Plan Assessment and plan (1) Personal history of colonic polyps: Status: Acute Assessment & Plan narrative: Patient presents for initial screening colonoscopy Risks, benefits, alternatives to colonoscopy explained, including but not limited to bowel perforation or other serious complication requiring surgery at less than 1 in 5000 colonoscopies, abdominal pain, cramping or bleeding and less than 1% of colonoscopies, and the chances that we find a diagnosis that would require further intervention of about 2%. Patient agrees to proceed. Time-Based Coding :: [TOTAL MINUTES] spent with patient and on the chart (including review of chart, obtaining history, exam, reviewing outside data, placing orders, documenting exam and treatment plan, and counseling patient) on [DATE].
--- NOTE | 2024-01-24 12:00 | PM.OP.COLON ---
Operative Date/Time/Diagnoses Date of procedure: 01/24/24 Time of procedure: 12:01 Pre-op diagnosis: Personal history of polyps Post-op diagnosis: same (Pancolonic diverticulosis) Procedure & Clinicians Study performed: Colonoscopy Same procedure as scheduled: Yes Indications: Personal history of polyps Surgeon: Ashutosh Chakraborty Procedure Notes SCOAP/Timeout: Performed Procedure in detail: Time-out was performed. Mac was induced. Patient was placed in left lateral decubitus position. The perineum was inspected without any gross abnormality. Lubricated pediatric colonoscope was inserted and advanced to the cecum. The terminal ileum was intubated. The colonoscope was withdrawn slowly inspecting the circumference of the colon. Very small polyps may have been missed, prep quality was adequate. Retroflexed view of the rectum showed small, non prolapsed nonbleeding internal hemorrhoids. The scope was withdrawn the patient was taken to PACU in good condition. Scope withdrawal time: 6 Sedation minutes: 11 Findings: divertiulosis Specimen(s): none sent Complications: none Impression: Pancolonic diverticulosis Post-procedure Recommendations: Colonoscopy in 5 years Follow up: as needed Disposition: PACU
[2024-01-24 12:02] VITALS: BP 123/77; PULSE 81; RESP 17; TEMP 36.8; O2SAT 95
[2024-01-24 12:07] VITALS: BP 118/78; PULSE 77; RESP 14; O2SAT 95
[2024-01-24 12:13] VITALS: BP 121/92; PULSE 80; RESP 17; TEMP 36.9; O2SAT 94
== END 2024-01-24 12:24 | disposition home or self-care (01) ==
PROVIDERS: Surgery; PCP Internal Medicine; Referring Provider Surgery; Visit Provider Surgery
PROC: 0DJD8ZZ Inspection of Lower Intestinal Tract, Via Natural or Artificial Opening Endoscopic (ICD-10-PCS; CPT 45378; principal; 2024-01-24 13:00)
DX: Z12.11 Encounter for screening for malignant neoplasm of colon (principal); Z86.0100 Personal history of colon polyps, unspecified; K57.30 Diverticulosis of large intestine without perforation or abscess without bleeding
CPT/HCPCS: G0105; J2704